=== PATIENT | male | born 1955 | race Caucasian/White ===

== ENCOUNTER → 2016-09-13 | Outpatient (CLI) | payer OTHER ==
--- NOTE | 2016-09-13 10:07 | US ---
Bilateral Duplex Carotid Sonography Clinical Indications: 61-year-old male who had a "flashing" sensation in his right eye. He has medica lly-controlled hypertension, and a history of hypercholesterolemia, and has smoked a 35 years (althou gh quit 8 years ago). Evaluate for hemodynamically significant stenosis. ICD 10 Diagnostic Code: H53.411. Technique: The cervical portions of the carotid and vertebral arteries were imaged and interrogated by color and pulsed Doppler. Spectral analysis was performed. Cine clips are stored on PACs. Comparison Study: None. Findings: Right Carotid Artery: The common carotid artery, bifurcation, and origin of the internal and externa l carotid artery are well imaged. Doppler velocity estimates and color Doppler spectra are normal, w ith no sonographic evidence of a flow-limiting stenosis. There is some intimal thickening associated with the posterior margins of the right carotid bulb and the proximal internal carotid artery. The pe ak systolic velocity in the ICA is 60 cm/sec, with a peak diastolic velocity of 26 cm/sec. The ICA to CCA systolic and diastolic ratios are normal. Left Carotid Artery: The common carotid artery, bifurcation, and origin of the internal and external carotid artery are well imaged. Doppler velocity estimates and color Doppler spectra are normal, wi th no sonographic evidence of a flow-limiting stenosis. There is some intimal thickening involving th e posterior margins of the left common carotid artery and the proximal aspect of the left external ca rotid artery. The peak systolic velocity in the internal carotid artery measures 61 cm/sec, with a pe ak diastolic velocity 23 cm/sec. The ICA to CCA systolic and diastolic ratios are normal. The ICA rig ht to left systolic ratio is normal. Vertebral Arteries: Antegrade flow is shown by pulsed Doppler of each vertebral artery. The peak sys tolic velocity in the right vertebral artery is 34 cm/sec, and in the left vertebral artery is 48 cm/ sec. Impression: 1. Mild atherosclerotic features; however, there is no sonographic evidence of a flow-limiting caroti d stenosis. 2. Patent, antegrade vertebral arteries. Measurement of carotid stenosis is based on velocity parameters that correlate the residual internal carotid diameter with [place] Symptomatic Carotid Endarterectomy Trial (NASCET) based stenosis levels.
== END ==
LOC: BMCIMAGING 09:14
PROVIDERS: ATTEND Registered Nurse General Practice
DX: H57.9 Unspecified disorder of eye and adnexa (principal)

== ENCOUNTER → 2016-10-07 | Outpatient (CLI) | payer OTHER ==
--- NOTE | 2016-10-07 17:00 | DX ---
Right Hip, 2 Views History: M24.851, right hip crepitus, right sciatica. Findings: Bilateral femoral neck regions demonstrate cam deformities. Right hip demonstrate severe devaughn int space narrowing superiorly with acetabular sclerosis and osteophytes. Mild left hip joint space n arrowing with slight acetabular sclerosis. Severe degenerative disk disease at L4-L5 with vacuum disk phenomenon and circumferential osteophytes . No destructive osseous lesions. Impression: 1. Severe osteoarthritis right hip. 2. Mild osteoarthritis left hip. 3. Cam deformities of bilateral femoral head/neck regions. 4. Severe degenerative disk disease at L4-L5.
--- NOTE | 2016-10-07 17:17 | DX ---
1. Right Knee , 3 views, including a sunrise view History: Chronic pain, M 25.561 Findings: The medial and lateral knee joint cartilage spaces are symmetric and normal except for hype rtrophic change involving the lateral half of the distal lateral femoral condyle. There is no chondro calcinosis or erosive change. There is a small posterior superior patellar spur. There is a large hyp ertrophic spur at the insertion of the distal quadriceps tendon on the anterior superior patella. The patella is normal location but associated with medial lateral spurring on either side of the patello femoral joint. There is osteochondromatosis with 4 ossicles present posterior to the knee joint. Over all mineralization is normal. Impression: 1. Mild osteoarthritic change. 2. Osteochondromatosis posteriorly. 2. Lumbar spine, 4 views History: Chronic pain, M54.31 Comparison: None Findings: There are 5 lumbarized vertebral bodies. 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 There is mild retrolisthesis between L1 and L3. There is moderate narrowing of the L4-L5 and L5-S1 d isk spaces both with vacuum phenomenon. There are ventral and dorsal disk space marginal osteophytes at all levels. Overall mineralization is normal. There are no compression abnormalities. There is deg enerative change of the left L5-S1 facet joint. There is severe osteoarthritis of the right hip joint . Impression: 1. Multilevel spondylosis. 2. Severe osteoarthritis right hip.
== END ==
LOC: BMCIMAGING 15:56
PROVIDERS: ATTEND Registered Nurse General Practice
DX: M17.11 Unilateral primary osteoarthritis, right knee (principal); D16.20 Benign neoplasm of long bones of unspecified lower limb; M47.896 Other spondylosis, lumbar region; M16.11 Unilateral primary osteoarthritis, right hip

== ENCOUNTER → 2016-11-22 | Outpatient (CLI) | payer OTHER | LOC: FIMAGING 15:42 | PROVIDERS: ATTEND Orthopaedic Surgery | DX: M16.11 Unilateral primary osteoarthritis, right hip (principal); M16.12 Unilateral primary osteoarthritis, left hip; M51.36 Other intervertebral disc degeneration, lumbar region ==

== ENCOUNTER 2016-11-28 16:45 | Inpatient (IN) | payer OTHER ==
[2016-12-07 16:36] LABS: % IMMATURE GRANULYOCYTES 0.1 % (0.0-1.1); ABSOLUTE IMMATURE GRANULOCYTES 0.01 10^3/uL (0.00-0.10); ADD DIFF? NO; ADD MORPH? NO; ADD SCAN? NO; ATYPICAL LYMPHOCYTE FLAG 20 (0-99); FRAGMENT RBC FLAG 0 (0-99); HEMATOCRIT 43.2 % (40.0-51.0); HEMOGLOBIN 14.8 g/dL (13.7-17.5); LEFT SHIFT FLG 0 (0-99); LIPEMIA HEMOLYSIS FLAG 90 (0-99); MEAN CELL HEMOGLOBIN 31.2 pg (27.9-34.1); MEAN CELL HEMOGLOBIN CONCENTR. 34.3 g/dL (32.4-36.7); MEAN CELL VOLUME 91.1 fL (81.5-99.8); MEAN PLATELET VOLUME 9.7 fL (8.7-11.7); PLATELET CLUMPS FLAG 0 (0-99); PLATELET COUNT 238 10^3/uL (150-400); RED BLOOD CELL COUNT 4.74 10^6/uL (4.40-6.38); RED CELL DISTRIBUTION WIDTH 13.2 % (11.5-15.2)
[2016-12-07 17:22] LABS: ANION GAP 14 mEq/L (8-16); CALCIUM 9.3 mg/dL (8.5-10.4); CARBON DIOXIDE 23 mEq/l (22-31); CHLORIDE 103 mEq/L (97-110); CREATININE 0.7 mg/dL (0.7-1.3); GLOMERULAR FILTRATION RATE > 60; GLUCOSE 148 mg/dL (70-100); POTASSIUM 3.7 mEq/L (3.5-5.2); SODIUM 140 mEq/L (134-144)
[2017-01-02] MEDS ORDERED: ROPI/epiNEPH/KETOROLAC/morphINE JOINT COCKTAIL IU ONE (06:00)
[2017-01-02] MEDS ORDERED: FAMOTIDINE 20 MG TAB PO ONE (06:00)
[2017-01-02] MEDS ORDERED: CHLORHEXIDINE GLUC HIBICLENS 118 ML BTL TP ONE (06:00)
[2017-01-02] MEDS ORDERED: ACETAMINOPHEN 325 MG TAB PO ONE (06:00)
[2017-01-02] MEDS ORDERED: CEFAZOLIN 2 GM/DEXTR 100 ML IV ONE (06:00)
[2017-01-02] MEDS ORDERED: LIDOCAINE 1% 2 ML INJ ONE (06:18)
[2017-01-02] MEDS ORDERED: LR 1,000 ML IV ONE (06:25)
[2017-01-02] MEDS ORDERED: LIDOCAINE 1% 5 ML SDV ID PRN (06:25)
[2017-01-02] MEDS ORDERED: CITRATE DEXTROSE SOLN 500 ML BAG ONE (06:36)
[2017-01-02] MEDS ORDERED: ceFAZolin 1 GM/5 ML SYR ONE (06:36)
[2017-01-02] MEDS ORDERED: LACTULOSE 20 GM/30 ML UDCUP PO PRN (06:51)
[2017-01-02] MEDS ORDERED: PHARMACY PAIN CONSULT 1 EA MISC PRN (06:51)
[2017-01-02] MEDS ORDERED: diphenhydrAMINE 25 MG CAP PO PRN (06:51)
[2017-01-02] MEDS ORDERED: PROMETHAZINE HCL 25 MG SUPPR PR PRN (06:51)
[2017-01-02] MEDS ORDERED: METOCLOPRAMIDE 10 MG/2 ML VIAL IVP PRN (06:51)
[2017-01-02] MEDS ORDERED: oxyCODONE IR 5 MG TAB PO PRN (06:51)
[2017-01-02] MEDS ORDERED: ONDANSETRON DISINTEGRATING 4 MG TAB PO PRN (06:51)
[2017-01-02] MEDS ORDERED: POLYETHYLENE GLYCOL 3350 17 GM PKT PO PRN (06:51)
[2017-01-02] MEDS ORDERED: DIAZEPAM 5 MG TAB PO PRN (06:51)
[2017-01-02] MEDS ORDERED: DIPHENOXYLATE/ATROPINE LOMOTIL 1 TAB PO PRN (06:51)
[2017-01-02] MEDS ORDERED: MAGNESIUM HYDROXIDE 30 ML UDCUP PO PRN (06:51)
[2017-01-02] MEDS ORDERED: traMADol 50 MG TAB PO PRN (06:51)
[2017-01-02] MEDS ORDERED: BISACODYL 10 MG SUPP PR PRN (06:51)
[2017-01-02] MEDS ORDERED: ONDANSETRON 4 MG/2 ML VIAL IVP PRN (06:51)
[2017-01-02] MEDS ORDERED: TEMAZEPAM 15 MG CAP PO PRN (06:51)
[2017-01-02] MEDS ORDERED: CYCLOBENZAPRINE 10 MG TAB PO PRN (06:51)
[2017-01-02] MEDS ORDERED: TRANEXAMIC ACID 1,600 MG in NS 100 ML IV ONE (07:00)
[2017-01-02] MEDS ORDERED: LR 1,000 ML IV SCH (07:00)
[2017-01-02] MEDS ORDERED: MIDAZOLAM 2 MG/2 ML VIAL ONE (07:01)
--- NOTE | 2017-01-02 07:03 | PDIAF ---
- Diagnosis Diagnosis: right hip djd Code Status: Full Code - Medication Management Discharge Medications: Medications to Continue on Transfer Acetaminophen [Tylenol ES 500 mg (*)] 1,000 mg PO Q6 11/28/16 [Last Taken ] Atorvastatin Calcium [Lipitor 10 mg (*)] 10 mg PO HS 11/28/16 [Last Taken ] Chlorthalidone [Chlorthalidone 25 mg (*)] 25 mg PO DAILY 11/28/16 [Last Taken ] Lisinopril [Zestril 20 mg (*)] 20 mg PO DAILY 11/28/16 [Last Taken 12/26/16] Multivitamins [Multivitamin (*)] 1 tab PO DAILY 11/28/16 [Last Taken 12/26/16] [place]-3 Fatty Acids [Fish Oil 1000 mg (*)] 1,000 mg PO DAILY 11/28/16 [Last Taken 12/26/16] Tamsulosin HCl [Flomax 0.4 MG (*)] 0.4 mg PO HS 11/28/16 [Last Taken 12/26/16] Zolpidem Tartrate [Ambien] 5 - 10 mg PO HS 11/28/16 [Last Taken 12/26/16] celeCOXIB [Celebrex (*)] 200 mg PO BID 11/28/16 [Last Taken 12/26/16] Discharge Medications: Refer to the Discharge Home Medication list for PRN reason. - Orders Diet Recommendation: no restrictions on diet Diet Texture: Regular Texture Diet Activity/Weight Bearing Restrictions: wbat. anterior hip precautions. daily dressing changes. may shower without bandage, no soaking or immersion. seek attention for increasing pain, drainage, fevers, sob or other focal complaints. f/u at two weeks - Follow Up Care Current Providers and Referrals: Annemarie Manzo FNP [Primary Care Provider] -
[2017-01-02] MEDS ORDERED: DEXAMETHASONE 4 MG/ML VIAL ONE (07:07)
[2017-01-02] MEDS ORDERED: ROCURONIUM 50 MG/5 ML VIAL ONE (07:07)
[2017-01-02] MEDS ORDERED: fentaNYL 250 MCG/5 ML INJ ONE (07:08)
[2017-01-02] MEDS ORDERED: PROPOFOL 200 MG/20 ML VIAL ONE (07:08)
[2017-01-02] MEDS ORDERED: PHENYLEPHRINE HCL 100 MCG/ML SYR ONE (07:35)
[2017-01-02] MEDS ORDERED: morphINE *ANESTHESIA ONLY* 10 MG/ML VIAL ONE (08:07)
[2017-01-02] MEDS ORDERED: NEOSTIGMINE METHYLSULFATE 5 MG/5 ML SYR ONE (08:12)
[2017-01-02] MEDS ORDERED: GLYCOPYRROLATE 0.2 MG/1 ML VIAL ONE (08:12)
[2017-01-02] MEDS ORDERED: ONDANSETRON 4 MG/2 ML VIAL ONE (08:12)
[2017-01-02] MEDS ORDERED: fentaNYL 100 MCG/2 ML INJ ONE (09:20)
[2017-01-02] MEDS: OMEGA-3 FATTY ACIDS 1,000 MG CAP PO SCH (10:56)
[2017-01-02] MEDS: SENNOSIDES/DOCUSATE SODIUM TAB PO SCH ×2 (10:56→21:08)
[2017-01-02] MEDS: MULTIVITAMINS 1 EACH TAB PO SCH (10:56)
[2017-01-02] MEDS: LISINOPRIL 20 MG TAB PO SCH (10:56)
[2017-01-02] MEDS: CHLORTHALIDONE 25 MG TAB PO SCH (10:56)
[2017-01-02] MEDS: ACETAMINOPHEN 325 MG TAB PO SCH ×2 (11:37→18:17)
[2017-01-02] MEDS: ceFAZolin 2 GM/DEXTROSE 100 ML IV SCH ×2 (15:11→21:10)
[2017-01-02] MEDS ORDERED: TAMSULOSIN HCL 0.4 MG CAP PO SCH (21:00)
[2017-01-02] MEDS ORDERED: ATORVASTATIN CALCIUM 10 MG TAB PO SCH (21:00)
[2017-01-02] MEDS: FAMOTIDINE 20 MG TAB PO SCH (21:09)
[2017-01-03] MEDS: ACETAMINOPHEN 325 MG TAB PO SCH ×2 (00:06→05:39)
[2017-01-03] MEDS: ASPIRIN 325 MG TAB PO SCH ×2 (00:06→08:31)
[2017-01-03 05:10] LABS: HEMATOCRIT 36.5 % (40.0-51.0); HEMOGLOBIN 12.2 g/dL (13.7-17.5)
--- NOTE | 2017-01-03 07:25 | PDIAF ---
- Diagnosis Diagnosis: right hip djd Code Status: Full Code - Medication Management Discharge Medications: Medications to Continue on Transfer Acetaminophen [Tylenol ES 500 mg (*)] 1,000 mg PO Q6 11/28/16 [Last Taken ] Atorvastatin Calcium [Lipitor 10 mg (*)] 10 mg PO HS 11/28/16 [Last Taken ] Chlorthalidone [Chlorthalidone 25 mg (*)] 25 mg PO DAILY 11/28/16 [Last Taken ] Lisinopril [Zestril 20 mg (*)] 20 mg PO DAILY 11/28/16 [Last Taken 12/26/16] Multivitamins [Multivitamin (*)] 1 tab PO DAILY 11/28/16 [Last Taken 12/26/16] [place]-3 Fatty Acids [Fish Oil 1000 mg (*)] 1,000 mg PO DAILY 11/28/16 [Last Taken 12/26/16] Tamsulosin HCl [Flomax 0.4 MG (*)] 0.4 mg PO HS 11/28/16 [Last Taken 12/26/16] Zolpidem Tartrate [Ambien] 5 - 10 mg PO HS 11/28/16 [Last Taken 12/26/16] celeCOXIB [Celebrex (*)] 200 mg PO BID 11/28/16 [Last Taken 12/26/16] Aspirin [Aspirin 325 mg (*)] 325 mg PO DAILY #0 tab 01/03/17 [Last Taken Unknown ] Diazepam [Valium 5 MG (*)] 5 mg PO Q6HRS PRN #30 tab 01/03/17 [Last Taken Unknown] oxyCODONE IR [Oxycodone Ir (*)] 5 - 10 mg PO Q3HRS PRN #70 tab 01/03/17 [Last Taken Unknown] Discharge Medications: Refer to the Discharge Home Medication list for PRN reason. - Orders Diet Recommendation: no restrictions on diet Diet Texture: Regular Texture Diet Activity/Weight Bearing Restrictions: wbat. anterior hip precautions. daily dressing changes. may shower without bandage, no soaking or immersion. seek attention for increasing pain, drainage, fevers, sob or other focal complaints. f/u at two weeks - Follow Up Care Current Providers and Referrals: Annemarie Manzo FNP [Primary Care Provider] -
--- NOTE | 2017-01-03 08:10 | GDS ---
[f rep st] DISCHARGE SUMMARY ADMISSION DIAGNOSIS: Right hip degenerative joint disease. DISCHARGE DIAGNOSIS: Right hip degenerative joint disease. PROCEDURE: Right total hip arthroplasty. INDICATIONS: The patient is a 61-year-old gentleman with end-stage arthritis to his right hip. Cli nical and radiographic features are consistent with this. He has failed all attempts at conservativ e management. I have therefore recommended a total hip replacement. He understood the risks, benef its, and alternatives, and wished to proceed. Written consent was signed and placed in patient's art. HOSPITAL COURSE: The patient was admitted to the hospital after undergoing uncomplicated total hip arthroplasty. He tolerated the procedure well. Postoperatively, his course was uneventful. At the time of discharge, he is tolerating oral diet. His pain is well controlled on oral medicines. He is voiding without difficulty. His incisions are clean, dry, and intact. He has no calf swelling o r tenderness. Negative Homans sign. X-rays are stable with no fracture lucency and concentric redu ction. DISCHARGE ACTIVITY: Anterior hip precautions. Daily dressing changes. May shower without the band age. No soaking and/or immersion. Followup in 2 weeks for repeat evaluation. Seek attention for i ncreasing redness, swelling, drainage, discharge, or other focal complaint. DISCHARGE MEDICATIONS: Oxycodone, Valium and aspirin 325 mg p.o. daily for 6 weeks. /[id number]/MODL
[2017-01-03 08:16] VITALS: BP 120/65; PULSE 82; RESP 14; TEMP 97.3; O2SAT 93
[2017-01-03] MEDS: OMEGA-3 FATTY ACIDS 1,000 MG CAP PO SCH (08:31)
[2017-01-03] MEDS: LISINOPRIL 20 MG TAB PO SCH (08:31)
[2017-01-03] MEDS: MULTIVITAMINS 1 EACH TAB PO SCH (08:31)
[2017-01-03] MEDS: CHLORTHALIDONE 25 MG TAB PO SCH (08:31)
[2017-01-03] MEDS: SENNOSIDES/DOCUSATE SODIUM TAB PO SCH (08:32)
[2017-01-03] MEDS: FAMOTIDINE 20 MG TAB PO SCH (08:32)
== END 2017-01-03 12:32 | disposition home health service (06) | DRG 470 ==
LOC: F3N 01-02 05:58
PROVIDERS: ADMIT Orthopaedic Surgery; ATTEND Orthopaedic Surgery
PROC: 8E0Y0CZ Robotic Assisted Procedure of Lower Extremity, Open Approach (ICD-10-PCS; principal; 2017-01-02 07:15)
PROC: 0SR904Z Replacement of Right Hip Joint with Ceramic on Polyethylene Synthetic Substitute, Open Approach (ICD-10-PCS; principal; 2017-01-02 07:15)
DX: M16.0 Bilateral primary osteoarthritis of hip (principal); I10 Essential (primary) hypertension; E78.5 Hyperlipidemia, unspecified
CPT/HCPCS: 97110-GP; 97116-GP; 97161-GP; 97165-GO; C1713; J0171; J0690; J1100; J1885; J2250; J2370; J2405; J2704; J2710; J2795; J3010; J7060

== ENCOUNTER → 2017-02-15 | Outpatient (CLI) | payer OTHER | LOC: BMCIMAGING 14:47 | PROVIDERS: ATTEND Orthopaedic Surgery | DX: Z47.1 Aftercare following joint replacement surgery (principal); R20.2 Paresthesia of skin; Z96.642 Presence of left artificial hip joint ==

== ENCOUNTER → 2017-03-29 | Outpatient (CLI) | payer OTHER | LOC: BMCIMAGING 14:36 | PROVIDERS: ATTEND Orthopaedic Surgery | DX: Z96.641 Presence of right artificial hip joint (principal) ==

== ENCOUNTER → 2017-06-28 | Outpatient (CLI) | payer OTHER | LOC: BMCIMAGING 14:14 | PROVIDERS: ATTEND Orthopaedic Surgery | DX: Z47.1 Aftercare following joint replacement surgery (principal); Z96.641 Presence of right artificial hip joint ==

== ENCOUNTER → 2017-07-26 | Outpatient (CLI) | payer OTHER | LOC: BMCIMAGING 14:03 | PROVIDERS: ATTEND Registered Nurse General Practice | DX: M19.031 Primary osteoarthritis, right wrist (principal); M79.641 Pain in right hand; R20.0 Anesthesia of skin ==

== ENCOUNTER → 2017-10-24 | Outpatient (CLI) | payer OTHER | LOC: FIMAGING 10:51 | PROVIDERS: ATTEND Orthopaedic Surgery | DX: Z01.818 Encounter for other preprocedural examination (principal); M16.12 Unilateral primary osteoarthritis, left hip; Z96.641 Presence of right artificial hip joint ==

== ENCOUNTER → 2017-11-10 | Outpatient (CLI) | payer OTHER | LOC: FIMAGING 10:57 | PROVIDERS: ATTEND Neurological Surgery | DX: R20.0 Anesthesia of skin (principal); M62.521 Muscle wasting and atrophy, not elsewhere classified, right upper arm; M50.30 Other cervical disc degeneration, unspecified cervical region ==

== ENCOUNTER 2017-12-04 06:44 | Inpatient (IN) | payer OTHER ==
[~2017-12-04 06:44] MED LIST: BUPI/epINEPH/KETOROLAC/morphINE IU ONE; NS IV ONE; ROPIVACAINE 0.2% 80 MG, EPINEPHrine 0.2 MG, KETOROLAC TROMETHAMINE 30 MG, morphINE 10 M... IU ONE; TRANEXAMIC ACID IV ONE
--- NOTE | 2017-12-04 06:46 | PDHPUP ---
History & Physical Update H&P update statement: This history and physical update is based on an assessment of the patient which was completed after admission or registration (within 24 hours), but prior to the surgery/procedure. H&P update: no change in patient's condition since H&P completed
--- NOTE | 2017-12-04 06:46 | PDIAF ---
- Diagnosis Diagnosis: left hip djd Code Status: Full Code - Medication Management Discharge Medications: Medications to Continue on Transfer Atorvastatin Calcium [Lipitor 10 mg (*)] 10 mg PO HS 11/28/16 [Last Taken ] Chlorthalidone [Chlorthalidone 25 mg (*)] 25 mg PO DAILY 11/28/16 [Last Taken ] Lisinopril [Zestril 20 mg (*)] 20 mg PO DAILY 11/28/16 [Last Taken 12/26/16] Multivitamins [Multivitamin (*)] 1 tab PO DAILY 11/28/16 [Last Taken 12/26/16] [place]-3 Fatty Acids [Fish Oil 1000 mg (*)] 1,000 mg PO DAILY 11/28/16 [Last Taken 12/26/16] Tamsulosin HCl [Flomax 0.4 MG (*)] 0.4 mg PO HS 11/28/16 [Last Taken 12/26/16] Zolpidem Tartrate [Ambien] 5 mg PO HS 11/28/16 [Last Taken 12/26/16] celeCOXIB [Celebrex (*)] 200 mg PO DAILY 11/28/16 [Last Taken 12/26/16] oxyCODONE IR [Oxycodone Ir (*)] 5 mg PO DAILY PRN 11/02/17 [Last Taken Unknown] Discharge Medications: Refer to the Discharge Home Medication list for PRN reason. - Orders Services needed: Physical Therapy Activity/Weight Bearing Restrictions: wbat. anterior hip precautions. dressing changes. may shower without bandage. no soaking or immersion. follow up at two weeks [facility]. seek attn for increasing pain, cp, sob, leg swelling or pain, drainage - Follow Up Care Current Providers and Referrals: Annemarie Manzo FNP [Primary Care Provider] -
[2017-12-04] MEDS ORDERED: FAMOTIDINE 20 MG TAB PO ONE (06:57)
[2017-12-04] MEDS ORDERED: ceFAZolin 2 GM/SWFI 2 GM/20 ML SYR IVP ONE (06:57)
[2017-12-04] MEDS ORDERED: ACETAMINOPHEN 325 MG TAB PO ONE (06:57)
[2017-12-04] MEDS ORDERED: LR 1,000 ML IV ONE (06:59)
[2017-12-04] MEDS ORDERED: LIDOCAINE 1% 2 ML INJ ID PRN (06:59)
[2017-12-04] MEDS ORDERED: ceFAZolin 1 GM/5 ML SYR ONE (07:45)
[2017-12-04] MEDS ORDERED: MIDAZOLAM 2 MG/2 ML VIAL IVP ONE (08:38)
--- NOTE | 2017-12-04 08:39 | PDANEPAE ---
ANE History of Present Illness l hip oa ANE Past Medical History - Cardiovascular History Hx Hypertension: Yes Hx Arrhythmias: No Hx Chest Pain: No Hx Coronary Artery / Peripheral Vascular Disease: No Hx CHF / Valvular Disease: No Hx Palpitations: No Cardiovascular History Comment: pcp monitors bp medications - Pulmonary History Hx COPD: No Hx Asthma/Reactive Airway Disease: No Hx Recent Upper Respiratory Infection: No Hx Oxygen in Use at Home: No Hx Sleep Apnea: No Sleep Apnea Screening Result - Last Documented: Positive Pulmonary History Comment: renea triggers no dx - Neurologic History Hx Cerebrovascular Accident: No Hx Seizures: No Hx Dementia: No - Endocrine History Hx Diabetes: No - Renal History Hx Renal Disorders: No Renal History Comment: uti 08/2016 - Liver History Hx Hepatic Disorders: No - Neurological & Psychiatric Hx Hx Neurological and Psychiatric Disorders: No - Cancer History Hx Cancer: No - Congenital Disorder History Hx Congenital Disorders: No - GI History Hx Gastrointestinal Disorders: No - Other Health History Other Health History: wears glasses - Chronic Pain History Chronic Pain: Yes (right hip) - Surgical History Prior Surgeries: left shoulder surgery- scope 2014 with mar[facility] Review of Systems Review of Systems: - Exercise capacity METS (RN): 5 METS ANE Patient History - Allergies Allergies/Adverse Reactions: No Known Allergies Allergy (Verified 12/05/16 16:06) - Home Medications Home Medications: Atorvastatin Calcium [Lipitor 10 mg (*)] 10 mg PO HS 11/28/16 [Last Taken 20:30] Chlorthalidone [Chlorthalidone 25 mg (*)] 25 mg PO DAILY 11/28/16 [Last Taken ] Lisinopril [Zestril 20 mg (*)] 20 mg PO DAILY 11/28/16 [Last Taken 12/02/17] Multivitamins [Multivitamin (*)] 1 tab PO DAILY 11/28/16 [Last Taken 11/26/17] [place]-3 Fatty Acids [Fish Oil 1000 mg (*)] 1,000 mg PO DAILY 11/28/16 [Last Taken 11/26/17] Tamsulosin HCl [Flomax 0.4 MG (*)] 0.4 mg PO HS 11/28/16 [Last Taken 12/03/17 20 :30] Zolpidem Tartrate [Ambien] 5 mg PO HS 11/28/16 [Last Taken 12/03/17 20:30] celeCOXIB [Celebrex (*)] 200 mg PO DAILY 11/28/16 [Last Taken 11/26/17] oxyCODONE IR [Oxycodone Ir (*)] 5 mg PO DAILY PRN 11/02/17 [Last Taken 11/13/17] - NPO status NPO Since - Liquids (Date): 12/03/17 NPO Since - Liquids (Time): 20:30 NPO Since - Solids (Date): 12/03/17 NPO Since - Solids (Time): 18:00 - Smoking Hx Smoking Status: Former smoker - Family Anes Hx Family Hx Anesthesia Complications: none ANE Labs/Vital Signs - Vital Signs Blood Pressure: 128/86 Heart Rate: 87 Respiratory Rate: 16 O2 Sat (%): 93 Height: 175.26 cm Weight: 79.379 kg ANE Physical Exam - Airway Neck exam: FROM Mallampati Score: Class 1 Mouth exam: normal dental/mouth exam - Pulmonary Pulmonary: no respiratory distress - Cardiovascular Cardiovascular: regular rate and rhythym - ASA Status ASA Status: II ANE Anesthesia Plan Anesthesia Plan: GA w LMA, MAC, spinal
[2017-12-04] MEDS ORDERED: PROPOFOL/EMULSION 500 MG/50 ML BOTTLE IV ONE (08:46)
[2017-12-04] MEDS ORDERED: fentaNYL 100 MCG/2 ML INJ IVP PRN (09:44)
[2017-12-04] MEDS ORDERED: NALOXONE HCL 0.4 MG/ML INJ IVP PRN (09:44)
[2017-12-04] MEDS ORDERED: HYDROmorphONE/DILAUDID 2 MG/ML INJ IVP PRN (09:44)
[2017-12-04] MEDS ORDERED: PROMETHAZINE HCL 25 MG/ML INJ IVP PRN ×2 (09:44→11:00)
[2017-12-04] MEDS ORDERED: ONDANSETRON 4 MG/2 ML VIAL IVP PRN ×2 (09:44→11:00)
[2017-12-04] MEDS ORDERED: fentaNYL 100 MCG/2 ML INJ ONE (09:50)
[2017-12-04] MEDS ORDERED: HYDROmorphONE/DILAUDID 2 MG/ML INJ ONE (09:58)
[2017-12-04] MEDS ORDERED: PHENYLEPHRINE HCL 100 MCG/ML SYR ONE (10:19)
[2017-12-04] MEDS ORDERED: ONDANSETRON 4 MG/2 ML VIAL ONE (10:44)
[2017-12-04] MEDS ORDERED: DEXAMETHASONE 4 MG/ML VIAL ONE (10:44)
[2017-12-04] MEDS ORDERED: DIAZEPAM 5 MG TAB PO PRN (11:00)
[2017-12-04] MEDS ORDERED: METOCLOPRAMIDE 10 MG/2 ML VIAL IVP PRN (11:00)
[2017-12-04] MEDS ORDERED: LR 1,000 ML IV SCH (11:00)
[2017-12-04] MEDS ORDERED: ONDANSETRON DISINTEGRATING 4 MG TAB PO PRN (11:00)
[2017-12-04] MEDS ORDERED: LACTULOSE 20 GM/30 ML UDCUP PO PRN (11:00)
[2017-12-04] MEDS ORDERED: PROMETHAZINE HCL 25 MG SUPPR PR PRN (11:00)
[2017-12-04] MEDS ORDERED: BISACODYL 10 MG SUPP PR PRN (11:00)
[2017-12-04] MEDS ORDERED: diphenhydrAMINE 25 MG CAP PO PRN (11:00)
[2017-12-04] MEDS ORDERED: DIPHENOXYLATE/ATROPINE LOMOTIL 1 TAB PO PRN (11:00)
[2017-12-04] MEDS ORDERED: TEMAZEPAM 15 MG CAP PO PRN (11:00)
[2017-12-04] MEDS ORDERED: POLYETHYLENE GLYCOL 3350 17 GM PKT PO PRN (11:00)
[2017-12-04] MEDS ORDERED: MAGNESIUM HYDROXIDE 30 ML UDCUP PO PRN (11:00)
--- NOTE | 2017-12-04 11:20 | PDMN ---
Medical Necessity Medical necessity: Patient meets inpatient criteria per PA/MD notes and [facility] [place] S- 560 Hip Arthroplasty ( CPT 72626 / Medicare inpatient-only surgery.)
--- NOTE | 2017-12-04 11:21 | POSTANESTH ---
Post Anesthetic Evaluation Cardiovascular Status: Normal, Stable Respiratory Status: Normal, Stable Level of Consciousness/Mental Status: Can Participate in Eval Pain Control: Adequate, Prn Tx Ordered Nausea/Vomiting Control: Adequate, Prn Tx Ordered Complications Possibly Related to Anesthesia: None Noted
[2017-12-04] MEDS: TRANEXAMIC ACID 650 MG TAB PO SCH ×2 (12:42→18:11)
[2017-12-04] MEDS: ACETAMINOPHEN 325 MG TAB PO SCH ×2 (12:42→18:12)
[2017-12-04] MEDS ORDERED: ceFAZolin 2 GM/DEXTROSE 100 ML IV SCH (14:00)
[2017-12-04] MEDS: ceFAZolin 2 GM/SWFI 2 GM/20 ML SYR IVP SCH ×2 (14:13→21:14)
[2017-12-04] MEDS: oxyCODONE IR 5 MG TAB PO PRN ×2 (16:30→20:22)
[2017-12-04 19:34] VITALS: RESP 16
[2017-12-04] MEDS: FAMOTIDINE 20 MG TAB PO SCH (20:22)
[2017-12-04] MEDS: SENNOSIDES/DOCUSATE SODIUM TAB PO SCH (20:23)
[2017-12-04] MEDS ORDERED: TAMSULOSIN HCL 0.4 MG CAP PO SCH (21:00)
[2017-12-04] MEDS ORDERED: ATORVASTATIN CALCIUM 10 MG TAB PO SCH (21:00)
[2017-12-04] MEDS: ASPIRIN 325 MG TAB PO SCH (21:14)
[2017-12-05] MEDS: ACETAMINOPHEN 325 MG TAB PO SCH ×3 (00:39→10:50)
[2017-12-05] MEDS: TRANEXAMIC ACID 650 MG TAB PO SCH (03:46)
--- NOTE | 2017-12-05 07:16 | SOAPPROG ---
SOAP Progress Note Assessment/Plan: Assessment: s/p left doc Plan:stable d.c dvt precatuions 12/05/17 07:14 Subjective: no co no cp or sob Objective: Vital Signs Temp Pulse Resp BP Pulse Ox 37.1 C 67 16 107/70 95 12/05/17 04:00 12/05/17 04:00 12/05/17 04:00 12/05/17 04:00 12/05/17 04:00 Laboratory Results 12/05/17 04:26 12/04/17 12/05/17 12/06/17 05:59 05:59 05:59 Intake Total 2900 Output Total 1050 Balance 1850 dressing intact intact pf,df,ehl toes warm and pink neg homans suzanne xrays stable anatomic alignemnt no fx or lucency ICD10 Worksheet Patient Problems: Problems Problem Status Onset Hip arthritis Acute - ICD10 Problem Qualifiers (1) Hip arthritis
--- NOTE | 2017-12-05 07:18 | PDIAF ---
- Diagnosis Diagnosis: left hip djd Code Status: Full Code - Medication Management Discharge Medications: Medications to Continue on Transfer Atorvastatin Calcium [Lipitor 10 mg (*)] 10 mg PO HS 11/28/16 [Last Taken 20:30] Chlorthalidone [Chlorthalidone 25 mg (*)] 25 mg PO DAILY 11/28/16 [Last Taken ] Lisinopril [Zestril 20 mg (*)] 20 mg PO DAILY 11/28/16 [Last Taken 12/02/17] Multivitamins [Multivitamin (*)] 1 tab PO DAILY 11/28/16 [Last Taken 11/26/17] [place]-3 Fatty Acids [Fish Oil 1000 mg (*)] 1,000 mg PO DAILY 11/28/16 [Last Taken 11/26/17] Tamsulosin HCl [Flomax 0.4 MG (*)] 0.4 mg PO HS 11/28/16 [Last Taken 12/03/17 20 :30] Zolpidem Tartrate [Ambien] 5 mg PO HS 11/28/16 [Last Taken 12/03/17 20:30] celeCOXIB [Celebrex (*)] 200 mg PO DAILY 11/28/16 [Last Taken 11/26/17] oxyCODONE IR [Oxycodone Ir (*)] 5 mg PO DAILY PRN 11/02/17 [Last Taken 11/13/17] Aspirin [Aspirin 325 mg (*)] 325 mg PO DAILY tab 12/05/17 [Last Taken Unknown] Diazepam [Valium 5 MG (*)] 5 mg PO Q6HRS PRN #30 tab 12/05/17 [Last Taken Unknown] oxyCODONE IR [Oxycodone Ir (*)] 5 - 10 mg PO Q3HRS PRN #70 tab 12/05/17 [Last Taken Unknown] Discharge Medications: Refer to the Discharge Home Medication list for PRN reason. - Orders Services needed: Physical Therapy Diet Recommendation: no restrictions on diet Diet Texture: Regular Texture Diet Activity/Weight Bearing Restrictions: wbat. anterior hip precautions. dressing changes. may shower without bandage. no soaking or immersion. follow up at two weeks [facility]. seek attn for increasing pain, cp, sob, leg swelling or pain, drainage - Follow Up Care Current Providers and Referrals: Annemarie Manzo FNP [Primary Care Provider] - Carlos Gil MD [Medical Doctor] -
--- NOTE | 2017-12-05 07:36 | GDS ---
[f rep st] DISCHARGE SUMMARY ADMIT DIAGNOSIS: Left hip degenerative joint disease. DISCHARGE DIAGNOSIS: Left hip degenerative joint disease. PROCEDURE: Left total hip arthroplasty, anterior, MAKOplasty. HISTORY OF PRESENT ILLNESS: The patient is a 62-year-old gentleman who has end-stage arthritis to hi s left hip. Clinical, radiographic features are consistent with this. He has failed all attempts at conservative management. HOSPITAL COURSE: Patient was admitted to the hospital floor after uncomplicated total hip arthroplas ty. He tolerated the procedure well. At the time of discharge, he is tolerating an oral diet. Pain is well controlled on oral medicines. He is voiding without difficulty. Dressing is clean, dry, an d intact. He has negative Homans bilaterally. X-rays are stable, in anatomic alignment. No fractur e lucency and concentric reduction. DISCHARGE MEDICATIONS: Valium 5 mg 1-2 every 6 hours p.r.n. pain, oxycodone 5 mg 1-2 every 6 hours p .r.n. pain, and aspirin 325 mg daily. DISCHARGE INSTRUCTIONS: BRANNON hose x2 weeks. No soaking or immersion, but may shower. Follow up at 2 weeks. Seek attention for complications. /[id number]/MODL
[2017-12-05] MEDS: oxyCODONE IR 5 MG TAB PO PRN (08:05)
[2017-12-05] MEDS: SENNOSIDES/DOCUSATE SODIUM TAB PO SCH (08:06)
[2017-12-05] MEDS: FAMOTIDINE 20 MG TAB PO SCH (08:07)
[2017-12-05] MEDS: ASPIRIN 325 MG TAB PO SCH (08:08)
[2017-12-05 08:12] VITALS: TEMP 98.6
[2017-12-05] MEDS ORDERED: LISINOPRIL 20 MG TAB PO SCH (09:00)
[2017-12-05] MEDS ORDERED: CHLORTHALIDONE 25 MG TAB PO SCH (09:00)
--- NOTE | 2017-12-05 11:44 | ASMTCMCOM ---
CM Note CM Note Notes: Pt medically stable for d/c, no CM d/c needs identified. Pt declines HHC. PT rec home/outpatient. Date Signed: 12/05/2017 11:43 AM Electronically Signed By:ERICK Rosas
[2017-12-05 13:45] VITALS: BP 121/72; PULSE 84; O2SAT 90
--- NOTE | 2017-12-07 07:26 | GOP ---
[f rep st] OPERATIVE REPORT DATE OF OPERATION: 12/04/2017 SURGEON: Carlos Gil MD ASSEMBLER INSULATOR: Stanley Taylor, surgical forceps fabricator, who was a medical necessity for the entirety of the case. Also present was COLTON Corral. PREOPERATIVE DIAGNOSIS: Left hip degenerative joint disease. POSTOPERATIVE DIAGNOSIS: Left hip degenerative joint disease. PROCEDURE PERFORMED: Left total hip arthroplasty, anterior/MAKOplasty. FINDINGS: SPECIMENS: To Pathology: The femoral head. INDICATIONS: The patient is a 62-year-old gentleman who is known to me for previous right total hip replacement. He returns for planned elective left total hip replacement. He has end-stage arthritis . Clinical and radiographic features are consistent with this. He has failed all attempts at conser vative management. I have therefore recommended operative intervention. He understood the risks, be nefits and alternatives, wished to proceed. Written consent was signed and placed in the patient's c soto. DESCRIPTION OF PROCEDURE: The patient was identified in the preanesthesia area. The left hip clearl y demarcated as the operative site with an indelible marker. He was given 2 g of Ancef intravenously en route to the operative suite. In the OR, spinal anesthetic was placed, followed by sedation. He was positioned in the supine position on the operative table. Pelvis and both lower extremities wer e sterilely prepped and draped in the usual fashion. An appropriate time-out procedure was carried o ky. Attention was first turned to the right hemipelvis. A 2 cm incision was made posterior to the a nterior superior iliac crest. 3 pins were then placed and a pelvic reference array affixed. Attenti on was then turned to the left hip. An anterior approach was made. Thick subcutaneous flaps were el evated. The fascia of the tensor fascia shoshana was opened and the tensor retracted in a lateral direct ion. The underlying vascular structures were ligated, cauterized, and transected. They were elevate d off the anterior capsule and retractors were placed in an extracapsular position. T capsular incis ion was made. The retractors were placed into an intracapsular position. An acetabular checkpoint w as then placed. A bony wedge was withdrawn from the femoral neck. The femoral head was withdrawn. Remnants of the acetabulum soft tissue were sharply excised. The bony landmarks were entered into [facility] computer in standard fashion. The hip was reamed with a 56 mm reamer, using the MAKOplasty protoco l, in an opening angle of 40 degrees and anteversion of 20 degrees. A final titanium acetabular charlotte l was then impacted, confirmed to be fully seated. A 0-degree X3 liner was then placed with 36 mm in ner diameter. The femur was delivered through the use of soft tissue releases, retractors, and exten jarrell of the table by 20 degrees. The proximal canal was opened. Serial broaching was carried out to a size 7 stem. Trial reduction with a size 7 stem, 36, +0 mm head was then placed. Leg lengths wer e restored. External rotation, 90 degrees, in full extension with traction demonstrated no instabili ty. The trial femoral stem was withdrawn and a size 7 stem impacted to the same position. A 36 mm, +0 mm neck length Biolox head was then placed, confirmed to be fully seated. The hip was reduced con centrically. Copious irrigation was carried out. The tissue was injected with a joint cocktail of r opivacaine, morphine, Toradol, and epinephrine. The fascia over the tensor was closed using a 0 Vicr yl, subcutaneous tissue using 2-0 Quill, and the skin was stapled. Sterile dressings were applied. The patient was awakened, extubated, taken to the recovery room in good, stable condition. TOTAL TOURNIQUET TIME: None. COMPLICATIONS: None. IMPLANTS: The Rin Tritanium acetabular shell, size 56 mm, Trident X3 zero-degree polyethylene in sert, 36 mm, Accolade II 127-degree neck angle hip stem, size 7, and a Biolox delta ceramic head, 36 mm, +0 length. DISPOSITION: To the recovery room, then the floor. He is weightbearing. Anterior hip precautions. /[id number]/MODL
== END 2017-12-05 11:46 | disposition home or self-care (01) | DRG 470 ==
LOC: F3N 06:44
PROVIDERS: ADMIT Orthopaedic Surgery; ATTEND Orthopaedic Surgery
PROC: 0SRB04Z Replacement of Left Hip Joint with Ceramic on Polyethylene Synthetic Substitute, Open Approach (ICD-10-PCS; principal; 2017-12-04 09:15)
DX: M16.12 Unilateral primary osteoarthritis, left hip (principal); I10 Essential (primary) hypertension; G47.33 Obstructive sleep apnea (adult) (pediatric); Z96.641 Presence of right artificial hip joint
CPT/HCPCS: 97116-GP; 97161-GP; 97165-GO; 97530-GP; J0171; J0690; J1100; J1170; J1885; J2250; J2270; J2370; J2405; J2704; J2795; J3010

== ENCOUNTER → 2018-01-04 | Outpatient (CLI) | payer OTHER | LOC: BMCIMAGING 13:18 | PROVIDERS: ATTEND Orthopaedic Surgery Hand Surgery | DX: M19.011 Primary osteoarthritis, right shoulder (principal); M19.012 Primary osteoarthritis, left shoulder ==

== ENCOUNTER → 2018-01-16 | Outpatient (CLI) | payer OTHER | LOC: BMCIMAGING 07:37 | PROVIDERS: ATTEND Physician Assistant | DX: Z47.1 Aftercare following joint replacement surgery (principal); Z96.642 Presence of left artificial hip joint ==

== ENCOUNTER → 2018-04-09 | Outpatient (CLI) | payer OTHER | LOC: BMCIMAGING 15:56 | PROVIDERS: ATTEND Orthopaedic Surgery Hand Surgery | DX: Z09 Encounter for follow-up examination after completed treatment for conditions other than malignant neoplasm (principal); Z98.890 Other specified postprocedural states ==

== ENCOUNTER → 2018-05-23 | Outpatient (CLI) | payer OTHER | LOC: BMCIMAGING 15:17 | PROVIDERS: ATTEND Physician Assistant | DX: Z47.1 Aftercare following joint replacement surgery (principal); Z96.642 Presence of left artificial hip joint; Z96.641 Presence of right artificial hip joint ==

== ENCOUNTER → 2018-06-05 | Outpatient (CLI) | payer OTHER | LOC: BMCIMAGING 14:22 | PROVIDERS: ATTEND Orthopaedic Surgery Hand Surgery | DX: M19.131 Post-traumatic osteoarthritis, right wrist (principal) ==

== ENCOUNTER → 2018-07-03 | Outpatient (CLI) | payer OTHER | LOC: EDSTATUS 15:45 → BMCLAB 15:45 → BMCIMAGING 15:46 | PROVIDERS: ATTEND Orthopaedic Surgery Hand Surgery | DX: M19.131 Post-traumatic osteoarthritis, right wrist (principal) ==

== ENCOUNTER → 2018-07-18 | Outpatient (CLI) | payer OTHER | LOC: BMCIMAGING 14:42 | PROVIDERS: ATTEND Orthopaedic Surgery Hand Surgery | DX: M19.011 Primary osteoarthritis, right shoulder (principal) ==

== ENCOUNTER 2018-08-16 05:16 | Inpatient (IN) | payer OTHER ==
[2018-08-16] MEDS ORDERED: ceFAZolin 2 GM/DEXTROSE 100 ML IV ONE (05:32)
[2018-08-16] MEDS ORDERED: VANCOMYCIN HCL/NORMAL SALINE 250 ML IV ONE (05:32)
[2018-08-16] MEDS ORDERED: LIDOCAINE 1% 2 ML INJ ID PRN (05:33)
[2018-08-16] MEDS ORDERED: LR 1,000 ML IV ONE (05:33)
[2018-08-16] MEDS ORDERED: ROPIVACAINE 0.2% 80 MG, EPINEPHrine 0.2 MG, KETOROLAC TROMETHAMINE 30 MG, morphINE 10 M... IU ONE (06:00)
[2018-08-16] MEDS ORDERED: TRANEXAMIC ACID 1,700 MG in NS 100 ML IV ONE (06:00)
[2018-08-16] MEDS ORDERED: VANCOMYCIN 1 GM VIAL IRR ONE (06:00)
[2018-08-16] MEDS ORDERED: POLYMYXIN B SULFATE 500,000 UNIT/10 ML SYR IRR ONE (06:29)
[2018-08-16] MEDS ORDERED: VANCOMYCIN 1 GM VIAL ONE (06:29)
[2018-08-16] MEDS ORDERED: BACITRACIN 50,000 UNITS/10 ML SYR IRR ONE (06:29)
--- NOTE | 2018-08-16 07:00 | PDHPUP ---
History & Physical Update H&P update statement: This history and physical update is based on an assessment of the patient which was completed after admission or registration (within 24 hours), but prior to the surgery/procedure. H&P update: H&P reviewed & patient examined, no change in patient's condition since H&P completed
[2018-08-16] MEDS ORDERED: fentaNYL 100 MCG/2 ML INJ ONE ×2 (07:07→08:23)
[2018-08-16] MEDS ORDERED: PROPOFOL 200 MG/20 ML VIAL ONE (07:07)
[2018-08-16] MEDS ORDERED: MIDAZOLAM 2 MG/2 ML VIAL IVP ONE (07:08)
--- NOTE | 2018-08-16 07:09 | PDANEPAE ---
ANE History of Present Illness right total shoulder ANE Past Medical History - Cardiovascular History Hx Hypertension: Yes Hx Arrhythmias: No Hx Chest Pain: No Hx Coronary Artery / Peripheral Vascular Disease: No Hx CHF / Valvular Disease: No Hx Palpitations: No Cardiovascular History Comment: pcp monitors bp medications - Pulmonary History Hx COPD: No Hx Asthma/Reactive Airway Disease: No Hx Recent Upper Respiratory Infection: No Hx Oxygen in Use at Home: No Hx Sleep Apnea: No Sleep Apnea Screening Result - Last Documented: Positive Pulmonary History Comment: renea triggers no dx - Neurologic History Hx Cerebrovascular Accident: No Hx Seizures: No Hx Dementia: No - Endocrine History Hx Diabetes: No Obesity: no - Renal History Hx Renal Disorders: No Renal History Comment: uti 08/2016 - Liver History Hx Hepatic Disorders: No - Neurological & Psychiatric Hx Hx Neurological and Psychiatric Disorders: No - Cancer History Hx Cancer: No - Congenital Disorder History Hx Congenital Disorders: No - GI History Hx Gastrointestinal Disorders: No - Other Health History Other Health History: NEG - Chronic Pain History Chronic Pain: No - Surgical History Prior Surgeries: ULNAR RELEASE L ELBOW/CARPAL TUNNEL. R WRIST. JOHNNIE BOO. left shoulder surgery- scope 2014 with mar[facility] at [facility] ANE Review of Systems Review of Systems: - Exercise capacity METS (RN): 5 METS ANE Patient History - Allergies Allergies/Adverse Reactions: No Known Allergies Allergy (Verified 12/05/16 16:06) - Home Medications Home medications: home medication list seen and reviewed Home Medications: Atorvastatin Calcium [Lipitor 10 mg (*)] 10 mg PO HS 11/28/16 [Last Taken 20:00] Lisinopril [Zestril 20 mg (*)] 20 mg PO DAILY 11/28/16 [Last Taken 08/15/18 07: 00] Multivitamins [Multivitamin (*)] 1 tab PO DAILY 11/28/16 [Last Taken 08/09/18] Perry-3 Fatty Acids [Fish Oil 1000 mg (*)] 1,000 mg PO DAILY 11/28/16 [Last Taken 08/09/18] Chlorthalidone 08/09/18 [Last Taken 08/15/18 07:00] Trazodone HCl 08/09/18 [Last Taken 08/14/18 20:00] - NPO status NPO Since - Liquids (Date): 08/15/18 NPO Since - Liquids (Time): 18:30 NPO Since - Solids (Date): 08/15/18 NPO Since - Solids (Time): 18:00 - Smoking Hx Smoking Status: Former smoker - Family Anes Hx Family Hx Anesthesia Complications: none ANE Labs/Vital Signs - Vital Signs Blood Pressure: 131/82 Heart Rate: 66 Respiratory Rate: 18 O2 Sat (%): 93 Height: 175.26 cm Weight: 83.915 kg ANE Physical Exam - Airway Neck exam: FROM Mallampati Score: Class 1 Mouth exam: normal dental/mouth exam - Pulmonary Pulmonary: no respiratory distress - Cardiovascular Cardiovascular: regular rate and rhythym - ASA Status ASA Status: II ANE Anesthesia Plan Anesthesia Plan: GA w LMA Regional Anesthesia: continuous NB
[2018-08-16] MEDS ORDERED: MIDAZOLAM 2 MG/2 ML VIAL ONE (07:14)
[2018-08-16] MEDS ORDERED: KETOROLAC 30 MG/1 ML SDV ONE (07:17)
[2018-08-16] MEDS ORDERED: DEXAMETHASONE 4 MG/ML VIAL ONE (07:17)
[2018-08-16] MEDS ORDERED: ONDANSETRON 4 MG/2 ML VIAL ONE (07:17)
[2018-08-16] MEDS ORDERED: LIDOCAINE 2% 5 ML SDV ONE (07:17)
--- NOTE | 2018-08-16 07:18 | POSTANESTH ---
Post Anesthetic Evaluation Cardiovascular Status: Normal, Stable Respiratory Status: Normal, Stable Level of Consciousness/Mental Status: Can Participate in Eval, Alert and Oriented Pain Control: Adequate, Prn Tx Ordered Nausea/Vomiting Control: Adequate, Prn Tx Ordered Complications Possibly Related to Anesthesia: None Noted
[2018-08-16] MEDS ORDERED: ePHEDrine SULFATE 25 MG/5 ML SYR ONE ×2 (07:53→09:12)
[2018-08-16] MEDS: BUPIVACAINE/EPI 0.5% 30 ML SDV ONE ×2 (09:06→11:11)
[2018-08-16] MEDS ORDERED: PROMETHAZINE HCL 25 MG/ML INJ IVP PRN ×2 (11:07→11:25)
[2018-08-16] MEDS ORDERED: ACETAMINOPHEN 500 MG TAB PO PRN (11:07)
[2018-08-16] MEDS ORDERED: fentaNYL 100 MCG/2 ML INJ IVP PRN (11:07)
[2018-08-16] MEDS ORDERED: ALBUTEROL 3 ML DEYVIAL IH PRN (11:07)
[2018-08-16] MEDS ORDERED: ONDANSETRON 4 MG/2 ML VIAL IVP PRN ×2 (11:07→11:25)
[2018-08-16] MEDS ORDERED: LABETALOL HCL 20 MG/4 ML INJ IVP PRN (11:07)
[2018-08-16] MEDS ORDERED: LR 500 ML IV PRN (11:07)
[2018-08-16] MEDS ORDERED: HYDROmorphONE/DILAUDID 2 MG/ML INJ IVP PRN (11:07)
[2018-08-16] MEDS ORDERED: NALOXONE HCL 0.4 MG/ML INJ IVP PRN (11:07)
[2018-08-16] MEDS ORDERED: DIAZEPAM 5 MG/ML 1 ML SYR IVP PRN (11:07)
[2018-08-16] MEDS ORDERED: oxyCODONE IR 5 MG TAB PO PRN (11:07)
[2018-08-16] MEDS ORDERED: HYDROCODONE/APAP 5/325 TAB PO PRN (11:07)
[2018-08-16] MEDS ORDERED: diphenhydrAMINE 25 MG CAP PO PRN (11:25)
[2018-08-16] MEDS ORDERED: PROMETHAZINE HCL 25 MG SUPPR PR PRN (11:25)
[2018-08-16] MEDS ORDERED: ONDANSETRON DISINTEGRATING 4 MG TAB PO PRN (11:25)
[2018-08-16] MEDS ORDERED: METOCLOPRAMIDE 10 MG/2 ML VIAL IVP PRN (11:25)
[2018-08-16] MEDS ORDERED: LR 1,000 ML IV SCH ×2 (11:30)
[2018-08-16] MEDS: ACETAMINOPHEN 325 MG TAB PO SCH ×3 (13:25→22:57)
[2018-08-16] MEDS: ceFAZolin 2 GM/DEXTROSE 100 ML IV SCH ×2 (15:38→22:56)
--- NOTE | 2018-08-16 16:22 | GOP ---
DATE OF OPERATION: 08/16/2018 SURGEON: Souleymane Ramos MD REFERRAL CLERK: Olvin Taylor, FRENCH WEAVER, DELI MANAGER was the 1st assist for the surgery. A shampoo assistant medically necessary for retraction and safe and successful completion of this case. ANESTHESIA: General and block. PREOPERATIVE DIAGNOSIS: Rotator cuff arthropathy. POSTOPERATIVE DIAGNOSIS: Rotator cuff arthropathy. PROCEDURE PERFORMED: Right reverse total shoulder arthroplasty. FINDINGS: ESTIMATED BLOOD LOSS: 150 cc. INDICATIONS: The patient is a 62-year-old male who is very well known to me. I performed prior surgeries on him. I initially met the patient in September. We had reviewed an MRI of his right shoulder as he had been having worsening pain in that shoulder. He is status post a right rotator cuff repair and biceps tenodesis about 4 to 5 years ago and was having worsening pain. The MRI showed fairly severe rotator cuff arthropathy with acetabularization of the humeral head and glenoid osteophytes and loss of articular cartilage. I treated him conservatively initially with injection, which provided him some relief however it was temporary. After his left cubital and carpal tunnel release and right four-corner fusion, for which he had recovered well from, he wished to address his right shoulder as he was having pain and no longer responding to conservative treatment. I discussed risks and benefits with him, a reverse total shoulder as indicated. The risks include pain, bleeding, infection, prosthetic joint infection, prosthetic joint stability, continued pain, loss of motion, weakness, stiffness. He understood these risks and he wished to proceed. DESCRIPTION OF PROCEDURE: The patient was seen in the preoperative holding area. He was given an opportunity to ask more questions, all of his questions were answered. Consent was signed. Surgical site was marked. A block was performed. He was transferred to the operative suite. A time-out was called including surgical and anesthesia teams confirming the surgical site and procedure to be performed. The right upper extremity was prepped and draped in the usual sterile fashion. Prior to prepping and draping, he was very carefully placed in the beach chair position, great care being taken to ensure that all bony prominences were padded in the beach chair, that his head was secured and well-padded. 2 g of Ancef were given prior to incision. A time- out was called, the right upper extremity was prepped in the usual sterile fashion for shoulder arthroplasty. I marked out a standard deltopectoral incision, first dissected down through the skin. I used vancomycin powder after the initial incision. Of note, he was given tranexamic acid prior. After I identified, the deltopectoral internal, I identified the cephalic vein, and the cephalic vein was retracted medially, entered the deltopectoral interval, identified the conjoined tendon, opened up the subdeltoid space, placed a retractor, then I opened up the subacromial space. He had a prior biceps tenodesis and the biceps was gone; however, I opened up the rotator interval and then performed a subscapularis peel, and then the shoulder was dislocated in a standard fashion. He had a very large humeral head. Osteophytes were taken down. A release of the inferior capsule was performed until it was fully mobilized. Then, I used the DJO cut guide and performed an anatomic head cut at 30 degrees of retroversion. After this was done, I then turned my attention to the glenoid, used the glenoid retractors to visualize the glenoid, I then took down the glenoid labrum circumferentially protecting the axillary nerve during this time. After taking down the glenoid, I then placed the guidewire in freehand fashion. This was likely down to vault as it was over 80 mm when I drilled. I was happy with the position, adding inferior tilt. I then tapped, and then over the tap I reamed to freshen up the surface. I then placed the base plate, this was after irrigating. After placing the base plate, I placed the screws, the superior screw is about 34, inferior 30, the 2 anterior and posterior screws were 18. These were then irrigated again, placed vanc powder, placed the 36 neutral glenosphere and then I turned my attention to humeral prep. I brought the humerus back out, used a canal finder and reamer and reamed up to a 12 for a 10 stem. Of note, I found his prior rotator cuff anchors which were all removed, then I reamed for the metaphyseal fit stem. After reaming, I then placed some bone graft. I then pulse lavaged. I also pulse lavaged prior to placing the glenoid component. After pulse lavage, I placed some vanc powder and then I impacted the final component in 30 degrees of retroversion. I then trialed with a standard insert, 36 mm, and I had a nice stable reduction, it was not too tight. He had great range of motion, I was able to go across his chest with only a few millimeters of shuck. I then dislocated that, prepped again, irrigated and pulse lavaged, vanc powder. We placed a final poly, reduced it, I am very happy with the reduction. I then irrigated with dilute Betadine solution, then vanc powder, placed a joint cocktail in the joint. I loosely closed the deltopectoral interval with #2 Ethibond and then I closed sequentially in layered fashion, a layer of mandie. Sterile dressing was applied. He was placed in a shoulder immobilizer. He tolerated the procedure well and was taken back in stable condition. IMPLANTS USED: DJO UltiVate reverse total shoulder system, 30 mm glenoid screw base plate, 36 mm neutral head, 10 x 108 humeral stem and the 36 mm standard humeral socket insert. POSTOPERATIVE CONDITION: Stable. POSTOPERATIVE PLAN: He will be admitted to my service. He will be admitted for IV pain control and postoperative IV antibiotics. /[id number]/MODL MTDD
--- NOTE | 2018-08-16 18:55 | SOAPPROG ---
SOAP Progress Note Assessment/Plan: Assessment: POD#0 s/p R rTSA -doing very well this evening. Pain controlled with block Plan: -pain ctrl -24 hr IV Ancef -plan d/c home tmrw if pain well controlled 08/16/18 18:53 Subjective: Venancio seen this evening. Doing very well. Block working well. We spoke about his surgery. Objective: Vital Signs Temp Pulse Resp BP Pulse Ox 36.6 C 78 16 111/67 88 L 08/16/18 16:05 08/16/18 16:05 08/16/18 16:05 08/16/18 16:05 08/16/18 16:05 08/15/18 08/16/18 08/17/18 05:59 05:59 05:59 Intake Total 2100 Output Total 30 Balance 2069 RUE -dressing in place, c/d/i -beginning to be able to flex and extend digits ICD10 Worksheet Patient Problems: Problems Problem Status Onset Hip arthritis Acute
[2018-08-17] MEDS: oxyCODONE IR 5 MG TAB PO PRN ×3 (04:11→08:55)
[2018-08-17] MEDS: ACETAMINOPHEN 325 MG TAB PO SCH ×2 (05:44→11:32)
[2018-08-17 07:37] VITALS: BP 116/66
[2018-08-17] MEDS ORDERED: LACTULOSE 20 GM/30 ML UDCUP PO PRN (08:51)
[2018-08-17] MEDS ORDERED: BISACODYL 10 MG SUPP PR PRN (08:51)
[2018-08-17] MEDS ORDERED: POLYETHYLENE GLYCOL 3350 17 GM PKT PO PRN (08:51)
[2018-08-17] MEDS ORDERED: MAGNESIUM HYDROXIDE 30 ML UDCUP PO PRN (08:51)
[2018-08-17] MEDS ORDERED: FAMOTIDINE 20 MG TAB PO SCH (09:00)
[2018-08-17] MEDS ORDERED: SENNOSIDES/DOCUSATE SODIUM TAB PO SCH (09:00)
--- NOTE | 2018-08-17 11:11 | ASMTCMCOM ---
CM Note CM Note Notes: CM reviewed pt's chart for d/c planning. Pt presented with rotator cuff arthropathy. She had a right reverse total shoulder arthroplasty. He has been admitted for IV pain control and postoperative antibiotics. Pt works for [employer]. PT/ OT have been ordered. PT recommending out-pt treatment. No CM needs have been identified. CM will follow for changes. D/C Plan: Anticipate independent. Date Signed: 08/17/2018 11:10 AM Electronically Signed By:Edith Luciano
--- NOTE | 2018-08-17 15:18 | GDS ---
ADMITTING DIAGNOSIS: Right shoulder rotator cuff arthropathy, status post right reverse total should er arthroplasty. PROCEDURE PERFORMED: On August 16, right reverse total shoulder arthroplasty. HOSPITAL COURSE: The patient was admitted after an uncomplicated right reverse total shoulder arthro plasty for IV pain control, prophylactic IV antibiotics after surgery on August 16. His hospital course was unremarkable. On August 17, after the block wore off his pain was very well controlled with p.o. pain medications. His vital signs were stable, and he was deemed stable for discharge. DISCHARGE PLAN: The patient will follow up with me in 10-14 days. We discussed instructions for act ivity for his reverse total shoulder arthroplasty. /[id number]/MODL
[2018-08-17] MEDS ORDERED: traZODone 100 MG TAB PO SCH (21:00)
[2018-08-17] MEDS ORDERED: ATORVASTATIN CALCIUM 10 MG TAB PO SCH (21:00)
[2018-08-18] MEDS ORDERED: OMEGA-3 FATTY ACIDS 1,000 MG CAP PO SCH (09:00)
[2018-08-18] MEDS ORDERED: ASPIRIN EC 81 MG TAB PO SCH (09:00)
[2018-08-18] MEDS ORDERED: CHLORTHALIDONE 25 MG TAB PO SCH (09:00)
[2018-08-18] MEDS ORDERED: LISINOPRIL 20 MG TAB PO SCH (09:00)
[2018-08-18] MEDS ORDERED: MULTIVITAMINS 1 EACH TAB PO SCH (09:00)
== END 2018-08-17 11:44 | disposition home or self-care (01) | DRG 483 ==
LOC: FSGY 05:16 → F3N 11:26 → OBSVTOIN 11:32 → F3N 11:36 → UNDOADMOB 11:36 → F3N 12:59
PROVIDERS: ADMIT Orthopaedic Surgery Hand Surgery; ATTEND Orthopaedic Surgery Hand Surgery
PROC: 0RRJ00Z Replacement of Right Shoulder Joint with Reverse Ball and Socket Synthetic Substitute, Open Approach (ICD-10-PCS; principal; 2018-08-16 07:15)
DX: M12.811 Other specific arthropathies, not elsewhere classified, right shoulder (principal); I10 Essential (primary) hypertension; Z96.643 Presence of artificial hip joint, bilateral
CPT/HCPCS: 97161-GP; 97166-GO; C1713; G8978-GP-CI; G8979-GP-CI; G8980-GP-CI; J0171; J0690; J1100; J1885; J2250; J2270; J2405; J2704; J2795; J3010; J3370

== ENCOUNTER → 2018-08-27 | Outpatient (CLI) | payer OTHER | LOC: BMCIMAGING 13:15 | PROVIDERS: ATTEND Orthopaedic Surgery Hand Surgery | DX: Z47.1 Aftercare following joint replacement surgery (principal); Z96.611 Presence of right artificial shoulder joint ==

== ENCOUNTER → 2018-09-24 | Outpatient (CLI) | payer OTHER | LOC: BMCIMAGING 11:33 | PROVIDERS: ATTEND Orthopaedic Surgery Hand Surgery | DX: M19.011 Primary osteoarthritis, right shoulder (principal); Z96.611 Presence of right artificial shoulder joint ==